=== PATIENT | male | born 1980 | race Caucasian/White ===

== ENCOUNTER → 2021-09-14 | Outpatient (CLI) | payer OTHER | END | disposition home or self-care (01) | LOC: PPH VACUNA 09:00 | PROVIDERS: ATTEND Emergency Medicine Pediatric Emergency Medicine | DX: Z23 Encounter for immunization (principal) ==

== ENCOUNTER 2025-08-30 07:38 | Emergency (ER) | payer OTHER ==
[~2025-08-30] VITALS: Ht 180.3 cm; Wt 93.0 kg
[2025-08-30] MEDS ORDERED: BUSPIRONE HCL7.5 MG PO (07:42)
[2025-08-30] MEDS ORDERED: 0.9 % SODIUM CHLORIDE 1,000 ML IV SCH (08:15)
[2025-08-30] MEDS ORDERED: FAMOTIDINE/PF 20 MG/2 ML VIAL IV ONE (08:15)
[2025-08-30] MEDS ORDERED: FAMOTIDINE/PF 20 MG/2 ML VIAL ONE (08:36)
[2025-08-30 09:30] LABS: BASO % 0.6 % (0.1-1.2); EOS # 0.09 (0.04-0.54); EOS % 1.1 % (0.7-7.0); LYMPH # 0.89 (1.18-3.74); LYMPH % 10.5 % (19.3-53.1); MEAN PLATELET VOLUME 9.60 fl (9.4-12.4); MONO # 1.03 (0.24-0.82); NEUT # 6.37 (1.56-6.13); NEUT % 75.4 % (34.0-71.1); RED CELL DISTRIBUTION WIDTH 11.4 % (11.6-14.4)
[2025-08-30 09:32] LABS: URINE APPEARANCE Clear; URINE BILIRRUBIN Small (NEGATIVE); URINE BLOOD Negative; URINE COLOR Orange; URINE GLUCOSE Negative (NEGATIVE); URINE KETONE Trace (NEGATIVE); URINE LEUKOCYTE Trace; URINE NITRATE Negative; URINE PROTEIN Trace (NEGATIVE); URINE UROBILINOGEN 1.0 E.U./dl
[2025-08-30 09:33] LABS: MONO % 12.2 % (4.7-12.5)
[2025-08-30 09:35] LABS: URINE BACTERIA 192.1 uL (0.0-1933); URINE EPITHELIAL CELLS 15.1 uL (0.0-38.8); URINE WBC 14.2 uL (0.0-23.2)
[2025-08-30 09:46] LABS: COVID-19 AG NEGATIVE (NEGATIVE)
[2025-08-30 09:47] LABS: URINE CAST 0.56 uL (0.0-1.40); URINE RBC 1.6 uL (0.0-20.8)
[2025-08-30 09:55] LABS: BUN CREA RATIO 20.0 (7.0-25.0); CREATININE SERUM 0.79 mg/dL (0.70-1.30); GFR 107.56; GLUCOSE FASTING 96.0 mg/dL (65-100); OSMOLALITY SERUM 279.0 MOSM/KG (275-295)
[2025-08-30] MEDS ORDERED: PEPCID AC20 MG PO (11:16)
== END 2025-08-30 11:36 | disposition home or self-care (01) ==
LOC: ER 07:38
PROVIDERS: Student in an Organized Health Care Education/Training Program
DX: K21.9 Gastro-esophageal reflux disease without esophagitis (principal); Z20.822 Contact with and (suspected) exposure to COVID-19